=== PATIENT | male | born 1980 | race African-American/Black ===

== ENCOUNTER 2023-07-28 02:49 | Emergency (ER) | payer BC ==
[2023-07-28 02:58] VITALS: BP 119/72; PULSE 77; RESP 20; TEMP 98.2; BMI 28.8
[2023-07-28] MEDS ORDERED: AMOX TR/POT CLAV 875MG/125MG TABLETS (FP) PO ONE ×2 (03:51→04:09)
[2023-07-28] MEDS ORDERED: IBUPROFEN 600 MG TABLET (FP) PO ONE ×2 (03:51→03:53)
[2023-07-28] MEDS ORDERED: AMOX TR/POT CLAV 875MG/125MG TABLETS (FP) ONE (04:16)
== END 2023-07-28 04:46 | disposition home or self-care (01) ==
LOC: JER 02:49
DX: H92.01 Otalgia, right ear (principal); H66.001 Acute suppurative otitis media without spontaneous rupture of ear drum, right ear
CPT/HCPCS: 99283-25